=== PATIENT | female | born 1985 | race African-American/Black ===

== ENCOUNTER 2017-07-12 19:08 | Emergency (ER) | payer MEDICAID ==
[~2017-07-12 19:08] MED LIST: ALBU6.7H INH; BUTA1CAP PO; OMEP40CA2 PO; TRAM50 PO
[2017-07-12 22:00] VITALS: BP 118/58; PULSE 75; RESP 17; TEMP 98.9; O2SAT 98
[2017-07-12] MEDS ORDERED: BACT800T5 PO (22:13)
[2017-07-12] MEDS ORDERED: NORC5TAB PO (22:13)
--- NOTE | 2017-07-12 22:13 | PD ---
HPI Chief Complaint: Cold / Flu Symptoms Time Seen by Provider: 21:55 Travel History International Travel<30 days: No Contact w/Intl Traveler<30days: No Traveled to known affect area: No History of Present Illness HPI The patient is a 32-year-old -[place] female who presents to the emergency department for nodule on the left ear that is been present for several years and started after she had a piercing placed. The patient removed the piercing years ago, however, said this persistent nodule of the left ear which will get larger and smaller and occasionally drain. Over the last several days she notes increasing swelling over the affected area, does note some drainage from the affected area, states the pain radiates down to the left aspect of the neck and the left throat. She denies any fever. She denies any drainage from the left EAC, tinnitus, or decreased hearing. Symptoms are moderate. PFSH Past Medical History Asthma: Yes Bipolar Disorder: Yes High Cholesterol: Yes COPD: No Diminished Hearing: No Reproductive: Yes (ENDOMETRIOSIS) Migraines: Yes ?: Not LMP: 07/02/17 : 3 Para: 2 Miscarriage: 1 : 0 Past Surgical History Abdominal Surgery: Yes Body Medical Devices: ENDOMETRIOSIS Social History Alcohol Use: No Tobacco Use: Yes (04/10 PPD) Substance Use: Yes (MARIJUANA) Allergies-Medications (Allergen,Severity, Reaction): Coded Allergies: No Known Allergies (Verified , 09/08/14) Reported Meds & Prescriptions Reported Meds & Active Scripts Active Ultram (Tramadol HCl) 50 Mg Tab 50 Mg PO Q6H PRN Fioricet (Jwzfgosraf-Vzftaxaqfqudi-Oewmarhk) 50-300-40 Mg Cap 1-2 Cap PO Q6H PRN Reported Proventil Hfa 6.7 GM Inh (Albuterol Sulfate) 90 Mcg/Act Aer 2 Puff INH Q4-6H PRN Omeprazole 40 Mg Cap 40 Mg PO DAILY Review of Systems Except as stated in HPI: all other systems reviewed are Neg General / Constitutional: No: Fever HENT: Positive: Neck Pain, Other (As noted in history of present illness) Skin: Positive Other (As noted in the history of present illness) Physical Exam Narrative GENERAL: Awake, alert, pleasant 32-year-old female who appears her stated age and is in no acute respiratory distress. SKIN: Focused skin assessment warm/dry. HEAD: Atraumatic. Normocephalic. EYES: Pupils equal and round. No scleral icterus. No injection or drainage. ENT: No nasal bleeding or discharge. Mucous membranes pink and moist. TMs are translucent and EACs are clear. On the left ear, and the superior aspect of the auricle, just with inside the auricle, there is a circular nodule that is approximately 1.2 cm in diameter, tender with a focal head. Tenderness noted. Oropharynx reveals no erythema or exudate. NECK: Trachea midline. No JVD. Posterior auricular lymphadenopathy. Left anterior cervical lymphadenopathy mobile and tender. MUSCULOSKELETAL: No obvious deformities. No clubbing. No cyanosis. No edema. NEUROLOGICAL: Awake and alert. No obvious cranial nerve deficits. Motor grossly within normal limits. Normal speech. PSYCHIATRIC: Appropriate mood and affect; insight and judgment normal. Data Data Last Documented VS Vital Signs Date Time Temp Pulse Resp B/P (MAP) Pulse Ox O2 Delivery O2 Flow Rate FiO2 07/12/17 22:00 98.9 75 17 118/58 (78) 98 Room Air Orders Orders Acetamin-Hydrocod 325-5 Mg ([place] 5-325 (07/12/17 22:15) [facility] Medical Decision Making Medical Screen Exam Complete: Yes Emergency Medical Condition: Yes Medical Record Reviewed: Yes Differential Diagnosis Differential diagnosis includes infected sebaceous cyst, keloid, scar tissue, abscess, cellulitis. Narrative Course Pressure was applied to the affected area, there is a focal head, there was I think brown waxy substance that was removed partially. It appears to be an infected sebaceous cyst. The patient was placed on Bactrim, given [place] for pain in the emergency department. She is advised to follow-up the plastic surgeon and/or data processing equipment repairer to have the cyst removed once the inflammation has resolved. Diagnosis Primary Impression: Infected sebaceous cyst Patient Instructions: General Instructions Additional Instructions: Warm compresses. Follow-up with your primary physician. Return if symptoms worsen or progress. Medications as directed. Follow-up with a plastic surgeon and/or data processing equipment repairer for definitive treatment and removal of the cyst once the inflammation has resolved. Med/Other Pt SpecificInfo: Prescription(s) given Scripts Hydrocodone-Acetaminophen ([place]) 5 Mg-325 Mg Tab 1 TAB PO Q6H Y for PAIN, #10 TAB 0 Refills Prov: Douglas Rea MD 07/12/17 Sulfamethoxazole-Trimethoprim (Bactrim DS) 800-160 Mg Tab 1 TAB PO BID for Infection, #14 TAB 0 Refills Prov: Douglas Rea MD 07/12/17 Disposition: 01 DISCHARGE HOME Condition: Stable Douglas Rea MD Jul 12, 2017 22:13
[2017-07-12] MEDS ORDERED: ACETAMINOPHEN/HYDROcodone 325 MG/5 MG TAB PO ONE (22:15)
== END 2017-07-12 22:44 | disposition home or self-care (01) ==
LOC: NEPD 19:08
DX: L72.3 Sebaceous cyst (principal); L08.9 Local infection of the skin and subcutaneous tissue, unspecified; J45.909 Unspecified asthma, uncomplicated; F31.9 Bipolar disorder, unspecified; E78.00 Pure hypercholesterolemia, unspecified; F17.200 Nicotine dependence, unspecified, uncomplicated; F12.90 Cannabis use, unspecified, uncomplicated
CPT/HCPCS: 99283